=== PATIENT | male | born 1940 | race Caucasian/White ===

== ENCOUNTER 2021-01-30 15:47 | Emergency (ER) | payer OTHER ==
[2021-01-30] MEDS ORDERED: LIDOCAINE 1% W/EPI 1:100,000 MDV 20 ML VIAL ONE (15:55)
--- NOTE | 2021-01-30 16:32 | RAD REPORT ---
EXAM DESCRIPTION: CT - CTHCSPWOC - 01/30/2021 4:14 pm CLINICAL HISTORY: fall, head and neck injury COMPARISON: No comparisons TECHNIQUE: Axial 5 mm thick images of the head were obtained. Axial 2 mm thick images of the cervic al spine were obtained with sagittal and coronal reconstruction images generated and reviewed. All CT scans are performed using dose optimization technique as appropriate and may include automated exposure control or mA/KV adjustment according to patient size. FINDINGS: No intracranial hemorrhage, mass, edema or acute intracranial finding. No acute cortical b ased infarction. No cortical edema or sulcal effacement. Moderate severity atrophy changes are presen t ventricles in proportion. Atrophy involves the cerebellum as well. No extra-axial fluid collections . Mastoid air cells are clear. Mucosal thickening seen in the ethmoid air cells and right maxillary s inus. No globe or orbit abnormality seen. Cervical body height and alignment are normal. C3-4 disc space narrowing is present. There is fusion along the posterior aspect of the vertebrae. Facet degenerative changes are present on the left with probable facet fusion on the right. C5-6 and C6-7 disc space narrowing present with endplate spurring . Bony foraminal encroachment changes are present. No fracture or acute bony abnormality. Central ca nal detail is inherently limited. No paraspinal mass or hematoma. IMPRESSION: Negative CT head examination for acute finding. Negative CT cervical spine examination for acute finding. Nonacute head and cervical spine findings detailed in the body of the report.
--- NOTE | 2021-01-30 16:37 | RAD REPORT ---
EXAM DESCRIPTION: CT - Thorax Con - 01/30/2021 4:20 pm CLINICAL HISTORY: ABNORMAL BUFFER MACHINE, fall COMPARISON: Head C Spine Mpr Wo Con dated 01/30/2021 TECHNIQUE: Axial 5 mm thick images of the chest were obtained without IV contrast. All CT scans are performed using dose optimization technique as appropriate and may include automated exposure control or mA/KV adjustment according to patient size. FINDINGS: No acute infiltrate is seen. Fibrotic lung changes are present with small subpleural bulla and bleb in the upper lung dougherty. In the posterior mid right chest right lower lobe there is an 11 millimeter noncalcified subpleural nodule. Patient has large fully calcified left hilar lymph nodes. Small calcified 5 mm nodule seen in the lateral left lower lobe. No pleural thickening or pleural eff usion. No pneumothorax. No abnormal noncalcified mediastinal and hilar lymph nodes. Aortic calcifications are present without aneurysm or displaced calcification. Coronary artery calcifications are present. Heart size is upper normal. No pericardial thickening or effusion. Dense coronary artery calcifications are present. No chest wall mass or abnormal axillary lymphadenopathy. Limited upper abdomen imaging shows numerous granulomatous calcifications in a normal size spleen. IMPRESSION: No acute or emergent CT chest finding identified. A 10 millimeter noncalcified nodule is present in the right lower lobe. Follow-up CT imaging in 3-6 m [facility] would be suggested if the patient has no outside imaging for comparison. Large calcified left hilar lymph nodes from old infectious process. Patient has granulomatous calcif ications in the spleen.
--- NOTE | 2021-01-30 17:15 | ER ---
Nurse's Notes [facility] Name: Donny Gunderson Age: 80 yrs Sex: Male : 1940 Arrival Date: 01/30/2021 Time: 15:48 Bed 8 Private MD: Diagnosis: Unspecified injury of head, initial encounter;Facial Laceration Presentation: 01/30 15:48 Chief complaint: Patient states: Playing a game at [employer] just [employer]. Fell forward ll1 while hitting balloon . Hit head on table. Laceration above R eye, No LOC. No blood thinners. Bleeding controlled upon EMS arrival. VSS for EMS. Coronavirus screen: Client denies travel out of the [place] in the last 14 days. At this time, the client does not indicate any symptoms associated with coronavirus-19. Ebola Screen: Patient denies travel to an Ebola-affected area in the 21 days before illness onset. Initial Sepsis Screen: Does the patient meet any 2 criteria? No. Patient's initial sepsis screen is negative. Does the patient have a suspected source of infection? Yes: Skin breakdown/wound. Risk Assessment: Do you want to hurt yourself or someone else? Patient reports no desire to harm self or others. Onset of symptoms was January 30, 2021. 15:48 Method Of Arrival: EMS: [facility] 15:48 Acuity: CYNDI 3 ll1 17:33 Care prior to arrival: None. Mechanism of Injury: Fall. Trauma event details: [facility] ll1 [facility] Triage Assessment: 15:52 General: Appears in no apparent distress. Behavior is calm, cooperative, appropriate ll1 for age. Pain: Denies pain. Derm: Reports laceration above R eyebrow, no active bleeding. Injury Description: Head injury. Trauma Activation: Not Applicable Physician: ED Physician; Name: ; Notified At: ; Arrived At: Physician: General Surgeon; Name: ; Notified At: ; Arrived At: Physician: Radiology; Name: ; Notified At: ; Arrived At: Physician: Respiratory; Name: ; Notified At: ; Arrived At: Physician: Lab; Name: ; Notified At: ; Arrived At: Historical: - Allergies: 15:51 No Known Allergies; ll1 - PMHx: 15:51 Seizure; Diabetes mellitus; vit D def.; Low back pain; ll1 - PSHx: 15:51 Unable to Obtain; ll1 - Immunization history:: Adult Immunizations up to date. - Social history:: Smoking status: Patient denies any tobacco usage or history of. - Immunization history: Last tetanus immunization: - up to date. Screenin:25 Abuse screen: Denies threats or abuse. Nutritional screening: No deficits noted. ll1 Tuberculosis screening: No symptoms or risk factors identified. Fall Risk Fall in past 12 months (25 points). Ambulatory Aid- Crutches/Cane/Walker (15 pts). Gait- Impaired (20 pts.). Total Mcintosh Fall Scale indicates High Risk Score (45 or more points). Fall prevention measures have been instituted. Side Rails Up X 2 Placed Close to Nursing Station Frequent Obs/Assessments Occuring Family Present and informed to notify staff if the need to leave the bedside As available patient and family educated on Fall Prevention Program and Strategies. Primary Survey: 17:25 NO uncontrolled hemorrhage observed. A: The patient is alert. Airway: patent. ll1 Breathing/Chest: Respiratory effort: spontaneous, unlabored. Circulation: Pulses: palpable right radial artery and left radial artery. Disability Alert. Exposure/Environment: There is no evidence of uncontrolled external bleeding. A warming method has been applied: A warm blanket has been provided to the patient. 17:33 Reassessment Airway Airway Patent Breathing/Chest Respiratory pattern Regular ll1 Respiratory effort Spontaneous Unlabored Circulation Pulses Palpable Disability Alert. Assessment: 17:00 Reassessment: No changes from previously documented assessment. Patient and/or family ll1 updated on plan of care and expected duration. Pain level reassessed. 17:32 Reassessment: No changes from previously documented assessment. Patient and/or family ll1 updated on plan of care and expected duration. Pain level reassessed. Vital Signs: 15:52 BP 137 / 74; Pulse 77; Resp 18; Temp 98.0; Pulse Ox 96% on R/A; Pain 0/10; ll1 17:24 BP 142 / 77; Pulse 70; Resp 17; Pulse Ox 95% on R/A; ll1 Chadwick Coma Score: 17:26 Eye Response: spontaneous(4). Verbal Response: oriented(5). Motor Response: obeys ll1 commands(6). Total: 15. Trauma Score (Adult): 17:26 Eye Response: spontaneous(1); Verbal Response: oriented(1); Motor Response: obeys ll1 commands(2); Systolic BP: > 89 mm Hg(4); Respiratory Rate: 10 to 29 per min(4); Kingsley Score: 15; Trauma Score: 12 ED Course: 15:48 Patient arrived in ED. ll1 15:50 Christopher Lindsay PA is PHCP. john 15:50 Clement Calvert MD is Attending Physician. [facility] 15:51 Triage completed. ll1 15:52 Arm band placed on Patient placed in an exam room, on a stretcher. ll1 15:52 Patient has correct armband on for positive identification. Bed in low position. Call ll1 light in reach. Side rails up X2. Pulse ox on. NIBP on. 15:53 Kathe Michelle, ALIX is Primary Nurse. ll1 16:14 CT Head C Spine In Process Unspecified. EDMS 16:20 Thorax Wo Con In Process Unspecified. EDMS 17:33 No provider procedures requiring assistance completed. Patient did not have IV access ll1 during this emergency room visit. 17:33 Patient maintains SpO2 saturation greater than 95% on room air. Thermoregulation: warm ll1 blanket given to patient. Administered Medications: 06:30 Drug: Lidocaine-Epinephrine -1%: (1:100,000) 20 ml {Note: administered by margarita Verdin.} Volume: 20 ml; Route: Infiltration; 17:24 Follow up: Response: No adverse reaction ll1 Intake: 17:34 PO: 0ml; Total: 0ml. ll1 Output: 17:34 Urine: 0ml; Total: 0ml. ll1 Outcome: 17:15 Discharge ordered by MD. lopez 17:34 Discharged to home ambulatory. ll1 17:34 Condition: stable 17:34 Discharge instructions given to patient, family, Instructed on discharge instructions, follow up and referral plans. wound care, Demonstrated understanding of instructions, follow-up care, wound care. 17:34 Patient's length of stay was not longer than 2 hours. ll1 17:34 Patient left the ED. ll1 Signatures: Dispatcher [employer] EDNJ Christopher Lindsay PA PA jmm Lewis, Lynsay, RN RN ll1 Corrections: (The following items were deleted from the chart) 17:33 17:00 Reassessment: No changes from previously documented assessment. Patient and/or ll1 family updated on plan of care and expected duration. Pain level reassessed. Patient is alert, oriented x 3, equal unlabored respirations, skin warm/dry/pink. ll1
--- NOTE | 2021-01-30 17:16 | EDPHYS ---
Physician Documentation [facility] Name: Donny Gunderson Age: 80 yrs Sex: Male : 1940 Arrival Date: 01/30/2021 Time: 15:48 Bed 8 Private MD: ED Physician Clement Calvert HPI: 01/30 15:50 This 80 yrs old Male presents to ER via EMS with complaints of Fall Injury, Closed Head jmm Injury-Adult. 15:50 Details of fall: The patient fell from an upright position. Onset: The symptoms/episode jmm began/occurred acutely, just prior to arrival. Associated injuries: The patient sustained injury to the head. Is an 80-year-old male with history of diabetes mellitus, dementia the presents emerged department with a mechanical fall which occurred after he tripped while playing a balloon game at his alf.. Historical: - Allergies: 15:51 No Known Allergies; ll1 - PMHx: 15:51 Seizure; Diabetes mellitus; vit D def.; Low back pain; ll1 - PSHx: 15:51 Unable to Obtain; ll1 - Immunization history:: Adult Immunizations up to date. - Social history:: Smoking status: Patient denies any tobacco usage or history of. - Immunization history: Last tetanus immunization: - up to date. ROS: 15:50 Unable to obtain ROS due to baseline dementia. jmm Exam: 15:50 Constitutional: This is a well developed, well nourished patient who is awake, alert, jmm and in no acute distress. 15:50 Eyes: EOMI, no conjunctival erythema appreciated ENT: Moist Mucus Membranes Neck: Trachea midline, Supple Chest/axilla: Normal chest wall appearance and motion. Cardiovascular: Regular rate and rhythm. No edema appreciated Respiratory: Normal respirations, no respiratory distress appreciated Abdomen/GI: Non distended, soft Back: Normal ROM Skin: General appearance color normal 15:50 Head/face: Laceration noted to the forehead. 15:50 Musculoskeletal/extremity: ROM: intact in all extremities. 15:50 Skin: injury, laceration(s). 15:50 Neuro: Orientation: unable to test, the patient has a history of dementia. 15:50 Psych: Behavior/mood is pleasant, cooperative. Vital Signs: 15:52 BP 137 / 74; Pulse 77; Resp 18; Temp 98.0; Pulse Ox 96% on R/A; Pain 0/10; ll1 17:24 BP 142 / 77; Pulse 70; Resp 17; Pulse Ox 95% on R/A; ll1 Stuart Coma Score: 17:26 Eye Response: spontaneous(4). Verbal Response: oriented(5). Motor Response: obeys ll1 commands(6). Total: 15. Trauma Score (Adult): 17:26 Eye Response: spontaneous(1); Verbal Response: oriented(1); Motor Response: obeys ll1 commands(2); Systolic BP: > 89 mm Hg(4); Respiratory Rate: 10 to 29 per min(4); Chadwick Score: 15; Trauma Score: 12 Laceration: 17:14 Wound Repair of 2cm ( 0.8in ) subcutaneous laceration to middle aspect of right eyebrow [facility] and outer aspect of right eyebrow. Distal neuro/vascular/tendon intact. Anesthesia: Local anesthetic administered with 3 mls of 1% lidocaine w/ Epi. Wound prep: Simple cleansing with betadine by me. Skin closed with 7 5-0 Prolene using simple sutures and sterile technique. Patient tolerated well. MDM: 15:50 Patient medically screened. [facility] 17:14 Data reviewed: vital signs, nurses notes. Counseling: I had a detailed discussion with [facility] the patient and/or guardian regarding: the historical points, exam findings, and any diagnostic results supporting the discharge/admit diagnosis, radiology results, the need for outpatient follow up, to return to the emergency department if symptoms worsen or persist or if there are any questions or concerns that arise at home. 01/30 15:51 Order name: CT Head C Spine; Complete Time: 16:[address] [facility] 01/30 16:18 Order name: Thorax Wo Con; Complete Time: 16:39 [facility] 01/30 15:53 Order name: Dressing - Wound; Complete Time: 17:[address] [facility] 01/30 15:53 Order name: Gloves, Sterile: size 7; Complete Time: 17:[address] [facility] 01/30 15:53 Order name: Prolene, Sutures: 5-0 prolene; Complete Time: 17:[address] [facility] 01/30 15:53 Order name: Setup Suture Tray; Complete Time: 17:[address] [facility] Administered Medications: 06:30 Drug: Lidocaine-Epinephrine -1%: (1:100,000) 20 ml {Note: administered by margarita Verdin.} Volume: 20 ml; Route: Infiltration; 17:24 Follow up: Response: No adverse reaction ll1 Disposition: 17:40 Co-signature as Attending Physician, Clement Calvert MD. ag Disposition Summary: 01/30/21 17:15 Discharge Ordered Location: Home [facility] Condition: Stable [facility] Diagnosis - Unspecified injury of head, initial encounter [facility] - Facial Laceration [facility] Followup: [facility] - With: Private Physician - When: 7 - 10 days - Reason: Recheck today's complaints, Continuance of care, Staple/Suture removal, Re-evaluation by your physician Discharge Instructions: - Discharge Summary Sheet [facility] - Head Injury, Adult jm - Facial Laceration [facility] Forms: - Medication Reconciliation Form [facility] - Thank You Letter [facility] - Antibiotic Education [facility] - Prescription Opioid Use [facility] Signatures: Dispatcher [employer] EDMS Clement Calvert MD MD pkl Mickail, Joel, PA PA jmm Lewis, Lynsay, RN RN ll1
[2021-01-30 17:44] VITALS: TEMP 98
[2021-01-30 17:45] VITALS: BP 142/77; O2SAT 95
== END 2021-01-30 17:34 | disposition home or self-care (01) ==
LOC: ER 15:47
PROC: 0JQ10ZZ Repair Face Subcutaneous Tissue and Fascia, Open Approach (ICD-10-PCS; principal; 2021-01-30)
DX: S01.81XA Laceration without foreign body of other part of head, initial encounter (principal); W01.190A Fall on same level from slipping, tripping and stumbling with subsequent striking against furniture, initial encounter; Y93.89 Activity, other specified; Y92.129 Unspecified place in nursing home as the place of occurrence of the external cause
CPT/HCPCS: 70450; 71250; 72125; 99284